=== PATIENT | male | born 1995 | race Caucasian/White ===

== ENCOUNTER 2017-04-11 17:39 | Emergency (ER) | payer OTHER ==
[2017-04-11 17:45] VITALS: BP 110/62
[2017-04-11] MEDS ORDERED: SULF1TAB24 PO (18:38)
[2017-04-11] MEDS ORDERED: MUPI15CR TP (18:38)
--- NOTE | 2017-04-11 18:40 | PHYS DOC ---
General Chief Complaint: INSECT BITE Stated Complaint: INSECT BITE Time Seen by MD: 18:35 Source: patient Exam Limitations: no limitations Problems: History of Present Illness Initial Comments Pt is 21/M to ED c/o "insect bite." Pt assumes he was bitten, had what looked like "ingrown hair" several days ago. Developed redness/tenderness/swelling, draining "pus" past 24 hours. No fever /chills/myalgias/arthralgias, Td not updated. No h/o MRSA or immune deficiency , no prearrival tx. RN accompanied me for history/exam. VSS Onset: last week Severity: mild Pain/Injury Location: left leg Method of Injury: unknown Modifying Factors: worse with jarring, worse with movement, improves with rest Allergies: Coded Allergies: No Known Drug Allergies (Unverified , 04/11/17) Past Medical History Medical History: no pertinent history Surgical History: noncontributory Social History Smoker: non-smoker Alcohol: none Drugs: none Review of Systems Constitutional: denies chills, denies diaphoresis, denies fever, denies malaise EENTM: denies throat swelling, denies mouth swelling Respiratory: denies cough, denies shortness of breath, denies stridor, denies wheezing Cardiovascular: denies chest pain, denies palpitations, denies syncope Gastrointestinal: denies abdominal pain, denies nausea, denies vomiting Musculoskeletal: denies back pain, denies joint swelling, denies neck pain Skin: see HPI Physical Exam General Appearance: WD/WN, no apparent distress Neck: full range of motion, supple Cardiovascular/Respiratory: normal peripheral pulses, no respiratory distress Legs: left leg other (left medial thigh with 5cm area induration/erythema, central draining abscess mild TTP no fluctuance or ulceration) Neurologic/Tendon: normal sensation, normal motor functions, normal tendon functions, responds to pain Psychiatric: alert, oriented x 3 Skin: warm/dry (L thigh as above) Orders, Labs, Meds Td updated. Discussed tx plan pt expressed agreement/understanding. Departure Time of Disposition: 18:38 Disposition: 01 HOME, SELF-CARE Diagnosis: Draining Abscess w/Cellulitis likely MRSA Condition: GOOD Patient Instructions: Cellulitis, [id number], MRSA Overview, VIS, Tetanus, Diphtheria (Td); Tetanus, Diphtheria, Pertussis (Tdap) - CDC Additional Instructions: Keep covered with sterile dressing until healed. Wash twice daily with soap and warm water. OTC tylenol/ibuprofen as needed. Rx: bactrim ds, bactroban Take medication with food. Follow up with your doctor in 7-10 days for recheck. Return to ED with new or changing symptoms. ALY GARCIA DO Apr 11, 2017 18:40
[2017-04-11] MEDS ORDERED: DIPHTH,PERTUSS(ACELL),TET TOX 0.5 ML DISP.SYRIN. VAX IM ONE ×2 (18:45)
[2017-04-11] MEDS ORDERED: SMZ/TMP 800/160MG TABLET. PO ONE ×2 (18:45)
== END 2017-04-11 18:50 | disposition home or self-care (01) ==
LOC: ER 17:39
DX: L02.416 Cutaneous abscess of left lower limb (principal)
CPT/HCPCS: 90471; 90715; 99283-25

== ENCOUNTER 2020-04-02 22:44 | Emergency (ER) | payer OTHER ==
[~2020-04-02] VITALS: Ht 172.7 cm; Wt 67.3 kg
[2020-04-02 22:44] VITALS: BP 119/78
[~2020-04-02 22:44] MED LIST: MUPI15CR TP; SULF1TAB24 PO
--- NOTE | 2020-04-02 23:06 | PHYS DOC ---
Past History Past Medical History: Depression Past Surgical History: No Surgical History Alcohol Use: Occasionally Drug Use: None General Adult HPI: HPI: ".. I ve been sick today... ".. I took some tylenol and aleve.. but I still have a fever...ache.. like to flu or something.. " Patient is a 24 year old male who presents with above complaints fever, myalgia, arthralgia, pharyngitis, malaise, starting today. Patient denies any specific ill contacts. No recent travel outside the [facility]. No history of immunosuppression. Does not follow-up with primary care. Patient does smoke marijuana. Patient does not do flu vaccinations. Patient states he will not do the COVID vaccination. Patient states he is normally healthy. Review of Systems: Review of Systems: Constitutional: Complains of fever or chills Eyes: Denies change in visual acuity HENT: Complains of nasal congestion and sore throat Respiratory: Denies cough or shortness of breath Cardiovascular: Denies chest pain or edema GI: Denies abdominal pain, nausea, vomiting, bloody stools or diarrhea : Denies dysuria Musculoskeletal: Denies back pain or joint pain Integument: Denies rash Neurologic: Denies headache, focal weakness or sensory changes Endocrine: Denies polyuria or polydipsia Lymphatic: Denies swollen glands Psychiatric: Denies depression or anxiety Heart Score: Risk Factors: Risk Factors: DM, Current or recent (<one month) smoker, HTN, HLP, family history of CAD, obesity. Risk Scores: Score 0 - 3: 2.5% MACE over next 6 weeks - Discharge Home Score 4 - 6: 20.3% MACE over next 6 weeks - Admit for Clinical Observation Score 7 - 10: 72.7% MACE over next 6 weeks - Early Invasive Strategies Family History: Family History: Noncontributory Current Medications: Current Meds: See nursing for home meds Allergies: Allergies: Allergies Coded Allergies Type Severity Reaction Last Updated Verified No Known Drug Allergies 04/11/17 No Physical Exam: PE: Constitutional: mild distress, non-toxic appearance. [] HENT: Normocephalic, atraumatic, bilateral external ears normal, oropharynx moist, injected pharynx, slightly coated tongue, no oral exudates, nose n swollen turbinates and clear rhinorrhea Eyes: PERRLA, EOMI, conjunctiva normal, no discharge. [] Neck: Normal range of motion, no tenderness, supple, no stridor. [] Cardiovascular:Heart rate regular rhythm, no murmur [] Lungs & Thorax: Bilateral breath sounds equal at apex with few scattered wheezes auscultation [] Abdomen: Bowel sounds normal, soft, no tenderness, no masses, no pulsatile masses. [] Skin: Warm, dry, no erythema, no rash. [] Back: No tenderness, no CVA tenderness. [] Extremities: No tenderness, no cyanosis, no clubbing, ROM intact, no edema. [] Neurologic: Alert and oriented X 3, normal motor function, normal sensory function, no focal deficits noted. [] Psychologic: Affect anxious, judgement normal, mood normal. [] EKG: EKG: [] Radiology/Procedures: Radiology/Procedures: [] Course & Med Decision Making: Course & Med Decision Making Pertinent Labs and Imaging studies reviewed. (See chart for details) Patient push fluids. Take Tylenol and ibuprofen as needed for discomfort. May take Benadryl 25 to 50 mg 4 times a day for congestion and drainage. Follow-up primary care. Consider get COVID testing were rapid results are available. Self isolate the next 10 to 14 days. Consider COVID testing at the anterior isolation. Wear a mask covering your nose and mouth at all times and interactions . Wash hands frequently. Consider getting flu vaccination when over this acute illness. Impression: 1. History of fever 2. Viral syndrome [] Dragon Disclaimer: Dragon Disclaimer: This electronic medical record was generated, in whole or in part, using a voice recognition dictation system. Departure Departure: Disposition: 01 HOME/RESIDENCE PRIOR TO ADM Condition: STABLE Referrals: PCP,NO (PCP) Justification of Admission: Justification of Admission: Justification of Admission Dx: N/A Dragon Disclaimer This chart was dictated in whole or in part using Voice Recognition software in a busy, high-work load, and often noisy Emergency Department environment. It may contain unintended and wholly unrecognized errors or omissions. AUBREY BERMUDEZ MD Apr 02, 2020 23:06
[2020-04-02 23:44] LABS: INFLUENZA A PATIENT NEGATIVE (NEGATIVE); INFLUENZA B PATIENT NEGATIVE (NEGATIVE)
== END 2020-04-03 00:40 | disposition home or self-care (01) ==
LOC: ER 22:44
DX: B34.9 Viral infection, unspecified (principal); F12.10 Cannabis abuse, uncomplicated
CPT/HCPCS: 87070; 87804; 87880; 99283